=== PATIENT | male | born 1950 | race African-American/Black ===

== ENCOUNTER → 2016-09-19 | Outpatient (CLI) | payer OTHER ==
[~2016-09-19] VITALS: Ht 170.2 cm; Wt 77.1 kg
[~2016-09-19] MED LIST: HYDROCHLOROTHIA25 M2 PO; HYDROCODONE-APA1 TA1 PO; LIPITOR10 MG PO; LYRICA 75 MG CA75 MG PO; MULTIVITAMINS1 EAC7 PO; PROAIR HFA8.5 GM INH; SPIRIVA RESPIMAT4 GM INH; TRADJENTA5 MG PO; ULORIC40 MG PO; VOLTAREN GEL 1100 G2 TOP; XARELTO20 MG PO
--- NOTE | ~2016-09-19 | P ---
[facility] [place] [address] PROCEDURE REPORT Name: VIOLETTA MATT [id number] Admission: 09/19/16 Attend Phys: Priyank Deleon MD Discharge: Date of : 48 Report #: [id number] THIS REPORT FOR: //name// CC: Priyank Major DO BRIEF HISTORY: The patient is a 66-year-old male with history of Crohn's disease with abdominal pain. He also has an elevated sedimentation rate and had been experiencing fever. PREOPERATIVE DIAGNOSES: Crohn's disease and abdominal pain. POSTOPERATIVE DIAGNOSES: 1. Moderate ileitis with exudates raisin the possibility Clostridium difficile. 2. Rectal polyp. MEDICATIONS: Deep sedation with propofol per anesthesia. SPECIMEN: 1. Biopsies of terminal ileum. 2. Rectal polyp. 3. Stool aspirate for C. diff toxin. ESTIMATED BLOOD LOSS: 3 mL. PROCEDURE: Colonoscopy to surgical anastomosis and terminal ileum with biopsy. FINDINGS: Prior to propofol sedation, procedure of colonoscopy discussed with the patient. His is also present as well. The patient has had fever and has been having cough recently. Chest x-ray did not show acute changes. It was discussed with the patient's that he is ill and diagnosis needed to be determined. However, he may be at a high risk due to his recent cough and febrile illness. They indicate they understand and desire to proceed. DESCRIPTION OF PROCEDURE: With the patient in the left lateral decubitus position, digital examination was completed, which revealed no abnormalities. Specifically, I did not see evidence of perianal disease. Subsequently, the [employer] video colonoscope was introduced into the rectum, advanced under direct vision to the proximal colon. The ileocolonic anastomosis was identified. It was widely patent, without gross ulceration. The scope was advanced into the distal ileum. There was diffuse mucosal involvement with diffuse erythema and friability. In addition, there were areas of punctate exudate scattered about the ileum. The exudate raises the possibility of Clostridium difficile infection in his ileum. At that point, the scope was slowly withdrawn and careful circumferential views were obtained. The prep of the colon was limited. For examples, today, we were able to accomplish evaluation of his colon. [address] [address] PROCEDURE REPORT Name: VIOLETTA MATT [facility] #[id number] Admission: 09/19/16 Attend Phys: Priyank Deleon MD Discharge: Date of : 48 Report #: [id number] However, small lesions could have been overlooked, in particular with regard to colorectal screening, small polyp could have been overlooked due to retained material. However, the mucosa as well as could be visualized. It was within normal limits. Normal vascular pattern, normal light reflex. I did not see evidence of active Crohn's disease involving his colon. The colonic mucosa was normal down to the rectum. In the rectum, a diminutive erythematous polyp was seen and removed by biopsy. This may be an inflamed hyperplastic polyp or potentially a small adenoma. Upon retroflexion, no additional lesions were seen. Scope was withdrawn. The patient tolerated the procedure well. CONDITION OF THE PATIENT UPON DISCHARGE: Following procedure, the patient drowsy. He will be discharged to home when fully ambulatory. INSTRUCTIONS TO THE PATIENT AND FAMILY AT THE TIME OF DISCHARGE: The patient was found to have a fever today upon presentation for his procedures. He has had a cough recently. However, he does not have an active pneumonia on chest x-ray. He has had congestion and may have the sinusitis as well. He also has evidence of ileitis and likely has active Crohn's disease and possibility of Clostridium difficile. It is noted he has benign abdomen on exam. We will discuss further with Dr. David Major. At a minimum, we will place him on metronidazole 500 mg 3 times daily for [address] scan of the abdomen and pelvis for further evaluation, especially in view of his fever. He will need further treatment for his cough and possibly sinusitis. Again, we will contact Dr. Major and discuss further. <ELECTRONICALLY SIGNED> By: Priyank Deleon MD 09/19/16 1534 1023 1408 Priyank Deleon MD /nt
--- NOTE | ~2016-09-19 | P ---
[facility] [place] [address] PROCEDURE REPORT Name: VIOLETTA MATT [facility] [id number] Admission: 09/19/16 Attend Phys: Priyank Deleon MD Discharge: Date of : 48 Report #: [id number] THIS REPORT FOR: //name// CC: Priyank Major DO BRIEF HISTORY: The patient is a 66-year-old male with history of Crohn's disease. He also has diabetes. He was seen in the office 10 days ago with complaints of abdominal pain, early satiety and fullness. EGD was recommended to rule out peptic mucosal disease, Crohn's disease or gastroparesis. PREOPERATIVE DIAGNOSES: Abdominal pain, early satiety and Crohn's disease. POSTOPERATIVE DIAGNOSES: 1. Moderate diffuse gastritis. 2. Moderate duodenitis. MEDICATIONS: Deep sedation with propofol per anesthesia. SPECIMENS: 1. Biopsies of gastritis. 2. Biopsies of duodenitis. ESTIMATED BLOOD LOSS: 3 mL. PROCEDURE: EGD with biopsy. FINDINGS: Prior to propofol sedation, procedure of upper endoscopy discussed with the patient, all potential risks and its complications. He indicates he understands and desires to proceed. DESCRIPTION OF PROCEDURE: With the patient in the left lateral decubitus position, [employer]ji video endoscope was inserted in the cervical esophagus under direct vision without difficulty. Examination of this organ through its entire length revealed normal esophageal mucosa down the squamocolumnar junction. Squamocolumnar junction was inspected and noted to be unremarkable. No ulcers, erosions, Cortez's esophagus or significant hiatus hernias were seen. Scope was advanced in the stomach, which was examined on end views as well as retroflexed views. He had a linear gastritis with linear streaks of erythema extending from the antrum into the body and also scattered erosions around the body of the stomach. No ulcers were seen. There were no retained solids or liquids to suggest diabetic gastroparesis. Upon retroflexion, no masses were seen in the cardia of stomach. Mucosa proximally was normal. Multiple biopsies obtained of the gastritis. Pylorus was normal. Examination of duodenal bulb revealed patchy bulbar duodenitis to a moderate degree. There were no ulcers. Biopsies were obtained to evaluate the mucosa, in particular, for Crohn's [address] [address] PROCEDURE REPORT Name: VIOLETTA MATT Room #: REG CL [facility].#: [id number] Admission: 09/19/16 Attend Phys: Priyank Deleon MD Discharge: Date of : 48 Report #: [id number] disease. Second, third and fourth portion of duodenum were unremarkable. At that point, the scope was slowly withdrawn and careful circumferential views confirmed the above findings. The patient tolerated the procedure well. CONDITION OF THE PATIENT UPON DISCHARGE: Following procedure, the patient drowsy and prepared for colonoscopy. INSTRUCTIONS TO THE PATIENT AND FAMILY AT THE TIME OF DISCHARGE: We will follow up on biopsies obtained today. We will proceed with colonoscopy for evaluation of his Crohn's disease. May need further evaluation such as a gastric emptying study regarding his upper GI symptoms. <ELECTRONICALLY SIGNED> By: Priyank Deleon MD 09/19/16 1534 1001 1030 Priyank Deleon MD /nt
--- NOTE | ~2016-09-19 | S ---
[facility] [place] [address] [address] SURGICAL PATH RPT PROCEDURE Name: VIOLETTA MATT Room #: REG [facility].#: [id number] Admission: 09/19/16 Date of : 48 Discharge: Report #: [id number] Path Case #: [id number] PATHOLOGY REPORT COLLECTION DATE: 09/19/2016 RECEIVED DATE: 09/19/2016 SUBMITTING PHYS: Dr. Priyank Deleon OTHER PHYS: Dr. David Major SPECIMEN(S) RECEIVED: A.Biopsy to r/o gastritis and crohn's disease in stomach B.Biopsy at duodenum bulb C.Biopsy at ileum crohn's dx x4 D.Polyp at rectum * * * * * * * * * * * * FINAL DIAGNOSIS: A. Gastric mucosa, stomach rule out gastritis/Crohn's disease, endoscopic biopsy: - Changes compatible with mild reactive gastropathy. - Negative for intestinal metaplasia or atrophy. - Negative active gastritis, or granulomata, or findings to suggest Crohn's disease. - Negative for Helicobacter pylori. B. Small bowel, duodenum bulb, endoscopic biopsy: - Mild chronic active duodenitis, see comment. - Negative for villous blunting or increase in intraepithelial lymphocytosis. C. Small bowel, ileum, Crohn's, endoscopic biopsy: - Moderate active inflammation, see comment. - Negative for dysplasia or malignancy. D. Polyp, rectum, endoscopic biopsy: - Moderate active colitis along with reactive crypts showing mild architectural distortion. - Negative for dysplasia or malignancy. COMMENT: Examination shows varying degrees of inflammation. The "duodenum bulb" biopsy tissue shows scattered rare foci of acute inflammation involving the surface epithelium as well as the crypts. The lamina propria shows mild increase in lamina propria cellularity. The "ileum" biopsy tissue on the other hand shows markedly expanded lamina propria with cryptitis, surface epithelial inflammation, as well as focal crypt abscess formation. Subtle architectural abnormalities are present in this biopsy tissue as well. The "polyp at rectum" shows architectural abnormalities with hyperplastic reactive changes in addition to cryptitis. There are no [address] [address] SURGICAL PATH RPT PROCEDURE Name: VIOLETTA MATT Room #: REG [facility].#: [id number] Admission: 09/19/16 Date of : 48 Discharge: Report #: [id number] Path Case #: [id number] non-necrotizing granulomata identified, or viral inclusions identified. Overall, findings are compatible with the provided history or Crohn's disease or inflammatory bowel disease. There is no dysplasia or malignancy present. Please correlate clinically and follow-up as indicated. Helicobacter pylori immunohistochemical stain performed on block A1-negative. (IUV:mgr; d/t: 09/22/16) PATHOLOGIST: Niurka Clarke M.D. REPORT ELECTRONICALLY SIGNED BY: Niurka Clarke M.D. DATE/TIME: 09/22/2016 17:09 * * * * * * * * * * * * GROSS PATHOLOGY: A. Received in formalin labeled "Violetta Matt, stomach biopsy to rule out gastritis/Crohn's disease," are 2 segments of alanis soft tissue measuring 0.6 x 0.5 x 0.2 cm in aggregate dimensions and ranging from 0.4 to 0.5 cm in maximum dimension. The specimen is submitted entirely in cassette A1. B. Received in formalin labeled "Violetta Matt, biopsy duodenum bulb, rule out Crohn's," are 4 segments of alanis soft tissue measuring 1.3 x 0.5 x 0.2 cm in aggregate dimensions and ranging from 0.3 to 0.4 cm in maximum dimension. The specimen is submitted entirely in cassette B1. C. Received in formalin labeled "Violetta Matt, biopsy at ileum, Crohn's," are 3 segments of alanis soft tissue measuring 0.9 x 0.5 x 0.2 cm in aggregate dimensions and ranging from 0.4 to 0.5 cm in maximum dimension. The specimen is submitted entirely in cassette C1. D. Received in formalin labeled "Violetta Matt, polyp at rectum," are 3 segments of alanis soft tissue measuring 0.8 x 0.3 x 0.2 cm in aggregate dimensions and ranging from 0.3 to 0.4 cm in maximum dimension. The specimen is submitted entirely in cassette D1. (KAH; 09/20/2016) CLINICAL HISTORY: Pre-op diagnosis: Crohn's disease, abdominal pain Post-op diagnosis: Ileitis, polyps INITIAL CPT CODE(S): A; 59377, 86469 B; 45370 C; 30405 D; 69537 Professional services performed by [facility] at [address] [address] SURGICAL PATH RPT PROCEDURE Name: VIOLETTA MATT Room #: REG [facility] Au#: [id number] Admission: 09/19/16 Date of : 48 Discharge: Report #: [id number] Path Case #: [id number] [address], [place] [address] Technical services performed by [facility] at [address] [place] [address], [facility] [address] [place] [address]. [facility] [address] [place] [address] PHONE: [phone] DIRECTOR: Lonnie Interiano M.D. * * * END OF REPORT * * *
--- NOTE | ~2016-09-19 | EKG ---
[place] [address] [facility] [place] [address] ELECTROCARDIOGRAM REPORT Name: VIOLETTA MATT Room #: REG CLI [facility].#: [id number] Admission: 09/19/16 Attend Phys: Priyank Deleon MD Discharge: Date of : 48 Report #: [id number] THIS REPORT FOR: //name// [facility] Test Date: 2016-09-19 Test Time: 09:35:14 Pat Name: VIOLETTA MATT Department: Room: Gender: M Lead [employer] Developer: YESY : 1950 Requested By: Priyank Deleon Order Number: [id number] MD: Juan Hanna Measurements Intervals [place] Rate: 87 P: 41 FL: 164 QRS: -16 QRSD: 96 T: 54 QT: 352 QTc: 424 Interpretive Statements Sinus rhythm Borderline left axis deviation Borderline low voltage, extremity leads Compared to ECG 05/08/2003 07:34:06 ST segment abnormality is less pronounced Electronically Signed On 09-20-2016 10:07:09 CDT by Juan Hanna [email or web address] <ELECTRONICALLY SIGNED> By: Juan Hanna MD, [facility] 09/20/[address] [facility] 4 Juan Hanna MD, [facility] /EPI
[2016-09-19 09:10] LABS: HEMATOCRIT 35.2 % (42.0-52.0); HEMOGLOBIN 11.6 gm/dL (14.0-18.0); MCH 28.8 pg (26.0-34.0); MCHC 32.9 g/dL (28.0-37.0); MCV 87.4 fL (80.0-100.0); RBC 4.03 mil/uL (4.50-6.00); RDW 16.3 % (10.5-14.5); WBC 18.2 thou/uL (4.0-11.0)
[2016-09-19 11:44] LABS: CREATININE 1.2 mg/dL (0.7-1.3); POTASSIUM 3.9 mmol/L (3.5-5.1)
== END | disposition home or self-care (01) ==
LOC: GI 08:08
PROVIDERS: Specialist
DX: K62.1 Rectal polyp (principal); K29.70 Gastritis, unspecified, without bleeding; E16.4 Increased secretion of gastrin; K50.90 Crohn's disease, unspecified, without complications; F17.210 Nicotine dependence, cigarettes, uncomplicated; J44.9 Chronic obstructive pulmonary disease, unspecified; Z85.46 Personal history of malignant neoplasm of prostate; E11.9 Type 2 diabetes mellitus without complications; E78.00 Pure hypercholesterolemia, unspecified; I10 Essential (primary) hypertension
CPT/HCPCS: 62110; 62900

== ENCOUNTER → 2016-10-17 | Outpatient (CLI) | payer OTHER | LOC: CAT 12:10 | DX: K50.90 Crohn's disease, unspecified, without complications (principal); R19.7 Diarrhea, unspecified ==